=== PATIENT | female | born 1995 ===

== ENCOUNTER 2023-07-28 09:42 | Outpatient (CLI) | payer OTHER, SELFPAY | END 2023-07-28 09:43 | disposition home or self-care (01) | LOC: ANHAUDIO 09:43 | PROVIDERS: PCP Nurse Practitioner Family; Visit Provider Nurse Practitioner Family | DX: Z01.10 Encounter for examination of ears and hearing without abnormal findings (principal) | CPT/HCPCS: 99199 ==

== ENCOUNTER 2023-09-11 11:07 | Outpatient (CLI) | payer OTHER, SELFPAY | END 2023-09-11 11:08 | disposition home or self-care (01) | LOC: ANHAUDIO 11:07 | PROVIDERS: PCP Nurse Practitioner Family; Visit Provider Nurse Practitioner Family | DX: Z01.10 Encounter for examination of ears and hearing without abnormal findings (principal) | CPT/HCPCS: 99199 ==

== ENCOUNTER 2023-09-29 08:55 | Outpatient (CLI) | payer OTHER, SELFPAY | END 2023-09-29 08:56 | disposition home or self-care (01) | LOC: ANHAUDIO 08:56 | PROVIDERS: PCP Nurse Practitioner Family; Visit Provider Nurse Practitioner Family | DX: Z01.10 Encounter for examination of ears and hearing without abnormal findings (principal) | CPT/HCPCS: 99199 ==